=== PATIENT | male | born 1955 | race Caucasian/White ===

== ENCOUNTER 2017-03-28 18:56 | Emergency (ER) | payer MEDICAID ==
[~2017-03-28] VITALS: Ht 165.1 cm; Wt 78.0 kg
[~2017-03-28 18:56] MED LIST: ASPI-1169 PO; ATOR40TA PO; CAPT25TA3 PO; CARV25TA2 PO; FAMO-130 PO
[2017-03-28 19:00] VITALS: BP 142/85
[2017-03-28] MEDS ORDERED: OSELTAMIVIR PHOSPHATE 75 MG CAPSULE PO ONE (19:30)
[2017-03-28] MEDS ORDERED: IBUPROFEN 600 MG TABLET PO ONE (19:30)
[2017-03-28] MEDS ORDERED: ACETAMINOPHEN ES 500 MG TABLET PO ONE (19:30)
--- NOTE | 2017-03-28 19:41 | NUR ---
PT LEFT WITHOUT SIGNING DISCHARGE INSTRUCTIONS. PT WAS SEEN AND TREATED BY MOY VICKERS.
== END 2017-03-28 20:08 | disposition home or self-care (01) ==
LOC: ER 18:57
DX: R50.9 Fever, unspecified (principal); J02.9 Acute pharyngitis, unspecified; R51 Headache; R11.0 Nausea; I10 Essential (primary) hypertension; Z95.1 Presence of aortocoronary bypass graft; Z79.82 Long term (current) use of aspirin
CPT/HCPCS: 99281; A4606; Z7610; Z7502

== ENCOUNTER 2019-02-05 15:14 | Inpatient (IN) | payer MEDICARE, MEDICAID ==
[~2019-02-05] VITALS: Ht 167.6 cm; Wt 81.2 kg
--- NOTE | 2019-02-05 15:17 | NUR ---
[id number] FROM HOME FOR CHEST PAIN, TAKEN 2 NITRO SHERIFF'S DETECTIVE, C/O LOW BP AFTER GIVEN [id number] BY RA; DENIES ANY CHEST PAIN NOW. PATIENT A/OX4, BREATHING EVEN AND UNLABORED, NO SOB NOTED, CHANGED INTO GOWN, ATTACHED TO THE WEED BURNER. KEPT COMFORTABLE. NEEDS ATTENDED.
--- NOTE | 2019-02-05 15:20 | NUR ---
DR. TY AT BEDSIDE FOR EVAL.
[2019-02-05 15:40] LABS: BASOPHILS % (AUTO) 0.3 % (0.0-2.0); EOSINOPHILS % (AUTO) 0.8 % (0.0-6.0); HEMATOCRIT 39 % (39-51); HEMOGLOBIN 13.1 g/dL (13.5-17.5); LYMPHOCYTES # (AUTO) 1.3 /CMM (0.8-4.8); LYMPHOCYTES % (AUTO) 17.8 % (20.0-44.0); MEAN CORPUSCULAR HGB CONC 33 g/dl (31.0-36.0); MEAN CORPUSCULAR VOLUME 88 fL (80-96); MONOCYTES # (AUTO) 0.3 /CMM (0.1-1.30); MONOCYTES % (AUTO) 4.4 % (2.0-12.0); NEUTROPHILS # (AUTO) 5.8 /CMM (1.8-8.9); NEUTROPHILS % (AUTO) 76.7 % (43.0-81.0); PLATELET COUNT (AUTO) 226 /CMM (150-450); RED BLOOD CELL COUNT(AUTO) 4.49 MIL/uL (4.5-6.0); WHITE BLOOD COUNT (AUTO) 7.5 K/uL (4.3-11.0)
[2019-02-05 15:49] LABS: CALCIUM, SERUM 8.2 mg/dL (8.5-10.1); CARBON DIOXIDE 28 mmol/L (21-32); CHLORIDE 103 mmol/L (98-107); CREATININE 0.9 mg/dL (0.6-1.3); GLUCOSE 133 mg/dL (74-106); POTASSIUM 4.2 mmol/L (3.5-5.1); SODIUM SERUM 136 mmol/L (136-145); UREA NITROGEN, BLOOD 16 mg/dL (7-18)
--- NOTE | 2019-02-05 16:11 | NUR ---
JUAN SKAGGS [phone]
--- NOTE | 2019-02-05 16:13 | NUR ---
Nirav Richards [phone] CALLED
[2019-02-05] MEDS ORDERED: CARV6.252 PO (16:15)
[2019-02-05] MEDS ORDERED: CLON1PAT13 TD (16:15)
[2019-02-05] MEDS ORDERED: OMEG-72 PO (16:15)
[2019-02-05] MEDS ORDERED: COLC0.6T67 PO (16:15)
[2019-02-05] MEDS ORDERED: NITR0.4T48 PO (16:15)
[2019-02-05] MEDS ORDERED: ASPI-1152 PO (16:15)
--- NOTE | 2019-02-05 16:19 | NUR ---
CALLED FOR TELE
--- NOTE | 2019-02-05 17:23 | NUR ---
REPORT GIVEN TO SUMEET SWEET. AWAITING TRANSFER TO FLOOR.
--- NOTE | 2019-02-05 18:00 | NUR ---
PATIENT TRANSFERRED TO ROOM 304-1 VIA ACLS PROTOCOL. ENDORSED TO SUMEET SWEET FOR CRISTOBAL.
[2019-02-05 18:01] VITALS: BP 145/87
--- NOTE | 2019-02-05 18:10 | NUR ---
OVERLAY PLASTICIAN NOTES PATIENT ADMITTED TO UNIT, REPORT RECEIVED FROM CHANTAL SWEET. PATIENT AWAKE, ALERT AND ORIENTED X 4. NO ACUTE DISTRESS. DENIES ANY PAIN OR DISCOMFORT AT THIS TIME. PATIENT UNDER MEDICATION SUPERVISION OF DR SKAGGS, AWARE OF PATIENT ARRIVAL. PATIENT PLACED ON DIRECTOR OF CLINICAL EDUCATION, SR 61. JIM AT BEDSIDE. PATIENT AND ORIENTED TO UNIT, STAFF, PLAN OF CARE AND VERBALIZED UNDERSTANDING. ADMITTING ORDERS RECEIVED FROM DR SKAGGS. WILL CONTINUE TO MONITOR. BED LOCKED AND IN LOW POSITION. BILATERAL UPPER SIDE RAILS UP AND LOCKED. CALL LIGHT WITHIN EASY REACH
--- NOTE | 2019-02-05 18:13 | NUR ---
GYRO MECHANIC NOTES VERIFIED ORDER WITH DR SKAGGS FOR MORPHINE SULFATE. PER DR SKAGGS, MORPHINE SULFATE 1MG IV EVERY 1 HOUR, UP TO 3 DOSES FOR SEVERE PAIN. ORDER NOTED AND CARRIED OUT. WILL CONTINUE TO MONITOR
--- NOTE | 2019-02-05 18:20 | NUR ---
IRONWORKER FOREMAN NOTES SPOKE WITH PATIENT AND JIM AT BEDSIDE. BOTH VERBALIZED THAT PATIENT JUST HAD HIS STRESS TEST YESTER WITH DR REED AND RESULTS ARE STILL PENDING. MD AWARE. WILL CONTINUE TO MONITOR
[2019-02-05] MEDS ORDERED: COLCHICINE 0.6 MG TABLET PO PRN (18:30)
[2019-02-05] MEDS ORDERED: MORPHINE SULFATE INJ 2 MG/ML DISP.SYRIN IV PRN (18:30)
[2019-02-05] MEDS ORDERED: ZOLPIDEM TARTRATE 10 MG TABLET PO PRN (18:30)
[2019-02-05] MEDS ORDERED: LORAZEPAM 0.5 MG TABLET PO PRN (18:30)
[2019-02-05] MEDS ORDERED: ACETAMINOPHEN ES 500 MG TABLET PO PRN (18:30)
[2019-02-05] MEDS ORDERED: NITROGLYCERIN 0.4 MG/TAB BOTTLE SL PRN (18:30)
--- NOTE | 2019-02-05 18:32 | NUR ---
OIL FIELD ROUSTABOUT NOTES PATIENT AND JIM PROVIDED NUMBER FOR DR REED'S OFFICE ([phone])
--- NOTE | 2019-02-05 18:34 | NUR ---
RESEARCHER NOTES PATIENT RESTING INSIDE ROOM. AWAKE, ALERT AND ORIENTED X 4. NO ACUTE DISTRESS. DENIES ANY PAIN OR DISCOMFORT. PATIENT KEPT CLEAN, DRY AND COMFORTABLE. PROVIDED WITH CALM SAFE, HAZARD-FREE ENVIRONMENT. WILL ENDORSE TO INCOMING SHIFT FOR CRISTOBAL. BED LOCKED AND IN LOW POSITION. BILATERAL UPPER SIDE RAILS UP AND LOCKED. CALL LIGHT WITHIN EASY REACH
[2019-02-05 19:57] VITALS: BP 141/82
[2019-02-05] MEDS ORDERED: ENOXAPARIN SODIUM 60 MG/0.6 ML DISP.SYRIN SQ SCH (20:00)
[2019-02-05 20:09] LABS: THYROID STIMULATING HORMONE 1.153 uIU/mL (0.358-3.74)
[2019-02-05 20:10] LABS: MAGNESIUM 1.8 mg/dL (1.8-2.4)
[2019-02-05] MEDS: ATORVASTATIN 40 MG TABLET PO SCH (21:07)
[2019-02-05] MEDS: CARVEDILOL 6.25 MG TABLET PO SCH (21:07)
[2019-02-06] VITALS (57 sets, daily range): BP systolic 59–154; BP diastolic 27–94
--- NOTE | 2019-02-06 00:40 | NUR ---
GAS FITTER APPRENTICE NOTES TROP 1.[address] SKAGGS. MADE AWARE RE PT'S LAB RESULTS. WITH NEW ORDERS TO CALL DR. MENDEZ. WILL CONTINUE TO MONITOR.
--- NOTE | 2019-02-06 00:44 | NUR ---
MANAGER APPOINTMENT NOTES DR. MENDEZ CALLED. NOTIFIED HIM RE PT'S TROP. WITH NEW ORDERS TO DO STAT PTT & INR. IF NORMAL, START HEPARIN DRIP PER [facility] PROTOCOL. KEEP PT NPO X MEDS. ORDERS NOTED AND CARRIED OUT. WILL CONTINUE TO MONITOR.
[2019-02-06] MEDS ORDERED: HEPARIN INFUSION/D5W 500 ML IV PRN (01:00)
--- NOTE | 2019-02-06 01:19 | NUR ---
SHIELD RUNNER NOTES PHARMACIST CALLED. UNABLE TO ORDER HEPARIN AND LOVENOX AT THE SAME TIME PER PROTOCOL. NOTIFIED DR MENDEZ. WITH NEW ORDERS TO D/C LOVENOX AND START HEPARIN DRIP PER [facility] PROTOCOL. WILL CONTINUE TO MONITOR.
[2019-02-06] MEDS ORDERED: HEPARIN INFUSION/D5W 500 ML IV ONE (01:50)
[2019-02-06] MEDS ORDERED: HEPARIN SODIUM, PORCINE 5000 UNITS/1 ML VIAL IV ONE (02:00)
--- NOTE | 2019-02-06 06:17 | NUR ---
WAREHOUSE CONSULTANT NOTES AWAKE & RESPONSIVE. NOT IN ANY DISTRESS. NO SOB NOTED. DENIES ANY CP OR ANY DISCOMFORT AT THIS TIME. ON TELE SB @ 57 WITH HEPARIN DRIP INFUSING WELL. MONITORED ACCORDINGLY. CALL LIGHT WITHIN REACH. BED IN LOWEST POSITION. SR UP X 2 FOR SAFETY. WILL ENDORSE TO NEXT SHIFT.
[2019-02-06 06:21] LABS: BASOPHILS % (AUTO) 0.2 % (0.0-2.0); EOSINOPHILS % (AUTO) 1.4 % (0.0-6.0); HEMATOCRIT 40 % (39-51); HEMOGLOBIN 13.7 g/dL (13.5-17.5); LYMPHOCYTES # (AUTO) 2.6 /CMM (0.8-4.8); LYMPHOCYTES % (AUTO) 28.8 % (20.0-44.0); MEAN CORPUSCULAR HGB CONC 35 g/dl (31.0-36.0); MEAN CORPUSCULAR VOLUME 86 fL (80-96); MONOCYTES # (AUTO) 0.5 /CMM (0.1-1.30); MONOCYTES % (AUTO) 5.6 % (2.0-12.0); NEUTROPHILS # (AUTO) 5.9 /CMM (1.8-8.9); PLATELET COUNT (AUTO) 215 /CMM (150-450); RED BLOOD CELL COUNT(AUTO) 4.58 MIL/uL (4.5-6.0); WHITE BLOOD COUNT (AUTO) 9.2 K/uL (4.3-11.0)
--- NOTE | 2019-02-06 06:52 | NUR ---
PLASTERER SPRAY GUN NOTES TROP 8.148. DR MENDEZ NOTIFIED AT BEDSIDE. HEPARIN DRIP INFUSING WELL. WILL CONTINUE TO MONITOR.
[2019-02-06 06:54] LABS: ALBUMIN 3.6 g/dL (3.4-5.0); BILIRUBIN,TOTAL 0.4 mg/dL (0.2-1.0); CALCIUM, SERUM 8.7 mg/dL (8.5-10.1); CREATININE 0.9 mg/dL (0.6-1.3); POTASSIUM 4.3 mmol/L (3.5-5.1); TOTAL PROTEIN, SERUM 6.6 g/dL (6.4-8.2)
--- NOTE | 2019-02-06 07:10 | NUR ---
MS RN NOTES PATIENT IN BED ALERT ORIENTED X 3. NO ACUTE DISTRESS NOTED. BREATHING UNLABORED. DENIED CHEST PAIN. IV ACCESS PATENT AND INTACT, NO REDNESS OR SWELLING NOTED. SAFETY MEASURES IN PLACE. CALL LIGHT WITHIN REACH. WILL CONTINUE TO MONITOR ACCORDINGLY.
--- NOTE | 2019-02-06 07:35 | NUR ---
MANAGER ATHLETICS NOTES RECEIVED NEW ORDERS FROM AMIRA MCNAMARA TO CONTINUE NPO EXCEPT MEDS,CONSENT FOR LEFT HEART CATHETERIZATION AND/OR ANGIOPLASTY AND/OR, ANGIOPLASTY AND/OR STENT PLACEMENT AND/OR AORTAGRAM AND/OR LEFT, VENTRICULAR ANGIOGRAM AND CONTRAST SEDATION AND TO STOP HEPARIN AT 0900 TODAY 02/06/2019. NOTED AND CARRIED OUT
--- NOTE | 2019-02-06 08:00 | NUR ---
SAP PI DEVELOPER NOTES CLARIFIED WITH DR MENDEZ REGARDING ASPIRIN AND AM MEDS IF OK TO GIVE SAID OK, AND ALSO CLARIFIED REGARDING NEXT TROPONIN LEVEL BLOOD DRAW, SAID NO AT THIS TIME.
[2019-02-06] MEDS: PANTOPRAZOLE 40 MG TABLET.DR PO SCH (08:07)
[2019-02-06] MEDS: ASPIRIN EC 81 MG TABLET.DR PO SCH (08:16)
[2019-02-06] MEDS: CARVEDILOL 6.25 MG TABLET PO SCH ×2 (08:16→18:29)
[2019-02-06] MEDS: CLONIDINE HCL 0.2MG/24H PTWK 1 EA PATCH TD SCH ×2 (08:17→08:44)
[2019-02-06] MEDS: LISINOPRIL (5MG) 5 MG TABLET PO SCH ×2 (08:17→17:00)
--- NOTE | 2019-02-06 08:30 | NUR ---
SCHOOL ADMINISTRATOR NOTES PATIENT SEEN AND EVALUATED BY ANIKA STEVENSON, FAMILY AT BEDSIDE.
--- NOTE | 2019-02-06 09:00 | NUR ---
COLUMNIST NOTES PATIENT SEEN AND EVALUATED BY DR WRAY. HEPARIN DRIP STOPPED AT THIS TIME.
[2019-02-06] MEDS ORDERED: IV NS 0.9% 1,000 ML ONE (09:44)
[2019-02-06] MEDS ORDERED: IODIXANOL 150 ML IV ONE ×2 (09:44→11:19)
[2019-02-06] MEDS ORDERED: IV SET PRIMARY PUMP SET 1 EA INFUS.SET MC ONE (09:44)
[2019-02-06] MEDS ORDERED: IV NS 0.9% 50 ML IV ONE (09:59)
--- NOTE | 2019-02-06 10:22 | NUR ---
POLITICAL ORGANIZER NOTES PATIENT TRANSPORTED TO OPERATING ROOM IN STABLE CONDITION. FAMILY AT BEDSIDE.
[2019-02-06] MEDS ORDERED: MIDAZOLAM HCL 2 MG/2ML VIAL ONE ×2 (10:35→10:45)
[2019-02-06] MEDS ORDERED: FENTANYL PF 100MCG/2ML AMPUL ONE ×2 (10:35→10:45)
[2019-02-06] MEDS ORDERED: LIDOCAINE HCL/PF 1% 30 ML SDV ONE (10:50)
[2019-02-06] MEDS ORDERED: NITROGLYCERIN ICAR 1,000 MCG/10 ML VIAL ICAR ONE (11:33)
[2019-02-06] MEDS ORDERED: IODIXANOL 320MG/ML 50 ML IV ONE (11:35)
[2019-02-06] MEDS ORDERED: VERAPAMIL HCL IV 5 MG/2 ML VIAL ONE ×2 (11:35→11:52)
[2019-02-06] MEDS ORDERED: ASPIRIN 325 MG TABLET ONE (11:36)
[2019-02-06] MEDS ORDERED: TICAGRELOR 90 MG TABLET PO ONE (11:36)
--- NOTE | 2019-02-06 12:15 | NUR ---
Bottle of Brilinta handed to pt's at bedside.
--- NOTE | 2019-02-06 12:45 | NUR ---
EMPLOYMENT PROGRAM REPRESENTATIVE ADMITTING NOTES Rec'd pt from cardiac electrical laboratory technician. Pt s/p LHC w/ selective L&R coroangio by Dr. Richards. Pt A/O x 4, Welsh speaking. On R/A no SOB. SR/SB on telemonitor. IV line on RH G20 SL & L AC G18, both flushing well, no s/sx of infection/infiltration noted. Has R femoral sheath, no bleeding noted, w/ normal pedal pulses upon palpation. Skin is intact. Belongings at bedside. Pt oriented to room, at bedside. Safety precaution in place w/ bed in lowest & locked pos. Call light placed w/in reach. Will cont to monitor & attend pt needs. 1325 ECG done & reviewed by Dr. Richards. Per , may DC Heparin drip. Sheath can come out after 2 hrs. Hold good compression for at least 20 mins and check groin q30 mins first few hours.
[2019-02-06] MEDS ORDERED: IV NS 0.9% 1,000 ML BAG IV ONE (13:00)
[2019-02-06] MEDS: IV NS 0.9% 1,000 ML IV PRN ×4 (13:14→23:17)
--- NOTE | 2019-02-06 14:00 | NUR ---
Pt c/o mild substernal chest pain 06/08, non radiating. BP 133/84, HR 61, SR on telemonitor. Notified Dr. Richards.
--- NOTE | 2019-02-06 14:20 | NUR ---
Per Dr. Richards, cancel repeat troponin orders.
--- NOTE | 2019-02-06 15:03 | NUR ---
Pt seen & examined by Dr. Richards.
[2019-02-06] MEDS ORDERED: ISOSORBIDE MONONITRATE (30MG) 30 MG TAB.SR.24H PO SCH (15:30)
--- NOTE | 2019-02-06 16:00 | NUR ---
1600 R femoral sheath removed by KRISTIN Greenwood, good manual compression applied. Monitored closely for any sign of bleeding. 1608 Pt noted to be diaphoretic, pale looking, HR 46bpm, BP 59/39. Placed E-cart at bedside, hooked on defib pads. 1610 Spoke w/ Dr. Richards over the phone, made aware of the situation, ordered to give bolus of NS. MD to see pt. 1615 Dr. Richards at bedside, reassess pt condition, ordered to finish bolus of NS that is currently running then resume NS 150 cc/hr to complete 6 hrs. Continue monitor BP q5mins. Monitor for any sign of internal bleeding. Notify DEXTER.
[2019-02-06] MEDS: TICAGRELOR 90 MG TABLET PO SCH (17:30)
--- NOTE | 2019-02-06 18:24 | NUR ---
CARE INFORMATION ASSOCIATE CLOSING NOTES Pt resting comfortably on his bed, still has mild midsternal CP but tolerable. No SOB while on NC at 2lpm. SR/SB on telemonitor. IV line access (RH G20 & LAC G18) kept patent & intact, per Dr. Richards continue IVF NS x 150cc/hr overnight. R femoral, negative for any sign of bleeding w/ C/D/I dressing. Pt seen & examined by Dr. Richards. Per MD, continue bedrest for now, will re evaluate connor, pt & family notified. Safety precaution kept in place at all times w/ bed in lowest & locked pos. Call light placed w/in reach. Will endorse to PM RN for CRISTOBAL. Per Dr. Richards, if any changes, RN can contact Dr. Littlejohn. Addendum: 02/06/19 at 1829 by DARREN JOSE RN Addendum: Per Dr. Richards, hold BP meds for now.
[2019-02-06] MEDS ORDERED: IV NS 0.9% 1,000 ML BAG IV PRN (18:30)
--- NOTE | 2019-02-06 20:15 | NUR ---
curriculum development manager. initial assessment. RECEIVED THE PT REST ON THE BED. AWAKE, ALERT. FOLLOW COMMANDS, OXYGEN 2L VIA NASAL CANNULA. SAT 98%. RING PACKER SHOWING NSR. OXYGEN 2L VIA NASAL CANNULA. SAT 97%, NO ACUTE DISTRESS NOTED, CHEST PAIN 2/10 SCALE. IV RT HAND 20G. IVF NS 150ML/H. HOB ELEVATED, AFEBRILE, RT LEG PULSE PALPABLE, RT FEMORAL TINNY HEMATOMA NOTED, WILL CONTINUE TO MONITOR VITALS.
--- NOTE | 2019-02-06 20:23 | NUR ---
FUELER MD CARSON CALLED. GIVEN UP DATE,
[2019-02-06] MEDS: ATORVASTATIN 40 MG TABLET PO SCH (21:47)
[2019-02-07] VITALS (32 sets, daily range): BP systolic 69–123; BP diastolic 35–71
[2019-02-07] MEDS: IV NS 0.9% 1,000 ML IV PRN ×2 (03:30→06:09)
--- NOTE | 2019-02-07 05:28 | NUR ---
agricultural service worker. during shift pt denies chest pain. edi manager showing s angelina. blood pressure went down 88/50. couple of readings. ivf ns 150ml/h. will continue to monitor . Addendum: 02/07/19 at 0549 by MIKE ZHENG RN incomplete notes
[2019-02-07 06:09] LABS: BASOPHILS % (AUTO) 0.3 % (0.0-2.0); EOSINOPHILS % (AUTO) 0.6 % (0.0-6.0); HEMATOCRIT 36 % (39-51); HEMOGLOBIN 12.3 g/dL (13.5-17.5); LYMPHOCYTES # (AUTO) 1.6 /CMM (0.8-4.8); LYMPHOCYTES % (AUTO) 17.4 % (20.0-44.0); MEAN CORPUSCULAR HGB CONC 34 g/dl (31.0-36.0); MEAN CORPUSCULAR VOLUME 88 fL (80-96); MONOCYTES # (AUTO) 0.6 /CMM (0.1-1.30); MONOCYTES % (AUTO) 6.4 % (2.0-12.0); NEUTROPHILS # (AUTO) 7.1 /CMM (1.8-8.9); NEUTROPHILS % (AUTO) 75.3 % (43.0-81.0); PLATELET COUNT (AUTO) 190 /CMM (150-450); RED BLOOD CELL COUNT(AUTO) 4.15 MIL/uL (4.5-6.0); WHITE BLOOD COUNT (AUTO) 9.4 K/uL (4.3-11.0)
--- NOTE | 2019-02-07 06:28 | NUR ---
PROCESSING ASSISTANT. PT SLEPT WELL DURING SHIFT. PT DENIES CHEST PAIN. IVF NS 150ML/H. COUPLE OF LOW BLOOD PRESSURE NOTED. AND ALSO S KENNA. LOWEST WAS 45. NOT SUSTAIN
[2019-02-07 07:06] LABS: CALCIUM, SERUM 8.3 mg/dL (8.5-10.1); CREATININE 0.9 mg/dL (0.6-1.3); POTASSIUM 4.2 mmol/L (3.5-5.1)
--- NOTE | 2019-02-07 07:15 | NUR ---
BLUEPRINT ASSEMBLER INITIAL NOTES Rec'd pt on bed, A/O x 4, still has some mild chest discomfort but stated he is doing okay. No SOB while on R/A, sating 100%. SR on telemonitor. IV line access (RH G20 & L AC G18) patent & intact w/ NS x 150 cc/hr infusing well. No bleeding noted from R femoral sx site, only tiny hematoma. Good peripheral distal pulses. Skin remains intact. Safety precaution in place w/ bed in lowest & locked pos. Call light placed w/in reach. Will cont to monitor & attend pt needs.
[2019-02-07] MEDS: PANTOPRAZOLE 40 MG TABLET.DR PO SCH (07:28)
[2019-02-07] MEDS: CARVEDILOL 6.25 MG TABLET PO SCH (08:27)
[2019-02-07] MEDS: LISINOPRIL (5MG) 5 MG TABLET PO SCH (08:28)
[2019-02-07] MEDS: ASPIRIN EC 81 MG TABLET.DR PO SCH (08:30)
[2019-02-07] MEDS: TICAGRELOR 90 MG TABLET PO SCH (08:31)
--- NOTE | 2019-02-07 09:21 | NUR ---
Pt seen & examined by Dr. Keene.
--- NOTE | 2019-02-07 09:40 | NUR ---
Per Dr. Keene may start Miralax 17gm PO daily PRN & may give Docusate 200 mg PO x1.
--- NOTE | 2019-02-07 09:43 | NUR ---
Pt seen & examined by Dr. Littlejohn. Pt walked in the hallway, >200 ft w/ SBA. Denies any chest pain, discomfort & dizziness. BP 122/59, HR 59. Dr. Littlejohn updated.
--- NOTE | 2019-02-07 09:51 | NUR ---
Per Dr. Littlejohn, pt is cleared to go home. May resume his home medications.
[2019-02-07] MEDS ORDERED: POLYETHYLENE GLYCOL 3350 17 GM POWD.PACK PO PRN (10:00)
[2019-02-07] MEDS ORDERED: DOCUSATE SODIUM 100 MG CAPSULE PO ONE (10:00)
--- NOTE | 2019-02-07 10:54 | NUR ---
Called Dr. Keene, clarified if pt okay to go home. Per , pt may go home today, continue home medications as advised by site damage prevention technician. Addendum: 02/07/19 at 1245 by DARREN JOSE RN Addendum: Per Dr. Keene, may print medication reconciliation & resume pt home meds.
--- NOTE | 2019-02-07 12:20 | NUR ---
REPAIRER GENERALCRUTCHING CONTRACTOR NOTES: Pt DC'd to home as ordered. DC instruction & packet provided & explained thoroughly to the pt w/ & dtr at bedside, w/ verbalization of understanding. Pt remains A/O x 4, denies SOB & chest pain/discomfort. IV line access removed, pressure dressing applied, no bleeding noted. R femoral groin remains the same s/p sx, no bleeding from the site. Skin remains intact. Medications to take explained to the pt - its use, frequency & side effects w/ verbalization of understanding. Per , they already have the Brilinta at home. All belongings sent w/ pt, nothing missing. No concerns/issues identified during DC. Offered wheelchair but pt preferred to walk w/ family. Pt left the unit in stable condition.
== END 2019-02-07 12:30 | disposition home or self-care (01) | DRG 247 ==
LOC: ER 15:16 → TELE 17:25 → ICU 02-06 12:59
PROVIDERS: ADMIT Family Medicine; ATTEND Family Medicine
PROC: 4A023N7 Measurement of Cardiac Sampling and Pressure, Left Heart, Percutaneous Approach (ICD-10-PCS; principal; 2019-02-06)
PROC: 027035Z Dilation of Coronary Artery, One Artery with Two Drug-eluting Intraluminal Devices, Percutaneous Approach (ICD-10-PCS; 2019-02-06)
PROC: B211YZZ Fluoroscopy of Multiple Coronary Arteries using Other Contrast (ICD-10-PCS; 2019-02-06)
PROC: B21FYZZ Fluoroscopy of Other Bypass Graft using Other Contrast (ICD-10-PCS; 2019-02-06)
DX: I21.4 Non-ST elevation (NSTEMI) myocardial infarction (principal); I25.10 Atherosclerotic heart disease of native coronary artery without angina pectoris; I10 Essential (primary) hypertension; Z95.1 Presence of aortocoronary bypass graft; E78.5 Hyperlipidemia, unspecified; E66.9 Obesity, unspecified; F03.90 Unspecified dementia, unspecified severity, without behavioral disturbance, psychotic disturbance, mood disturbance, and anxiety; M19.90 Unspecified osteoarthritis, unspecified site; Z86.73 Personal history of transient ischemic attack (TIA), and cerebral infarction without residual deficits; G44.209 Tension-type headache, unspecified, not intractable; F43.10 Post-traumatic stress disorder, unspecified; Z95.5 Presence of coronary angioplasty implant and graft; N40.0 Benign prostatic hyperplasia without lower urinary tract symptoms; M81.0 Age-related osteoporosis without current pathological fracture; J44.9 Chronic obstructive pulmonary disease, unspecified; K21.9 Gastro-esophageal reflux disease without esophagitis; F41.9 Anxiety disorder, unspecified; Z87.442 Personal history of urinary calculi; I25.2 Old myocardial infarction
CPT/HCPCS: 36415; 71045-TC; 80048-TC; 80053-TC; 80061-TC; 83735-TC; 84443-TC; 84484-TC; 85025-TC; 85610-TC; 85730-TC; 87081-TC; 92980; 92981; 92982; 93307-TC; 93452; A4216; A6403; C1725; C1887; C1894; G0378; J1644; J2250; J3010; J3490; J7030; J7050; Q9967

== ENCOUNTER 2020-12-26 04:41 | Inpatient (IN) | payer MEDICARE, OTHER ==
[~2020-12-26] VITALS: Ht 167.6 cm; Wt 88.5 kg
[~2020-12-26 04:41] MED LIST changes: -ASPI-1169 PO; +ASPI-1420 PO; -CARV25TA2 PO; +CARV6.252 PO; +CLON1PAT13 TD; +COLC0.6T67 PO; -FAMO-130 PO; +NITR0.4T48 PO; +OMEG-72 PO
--- NOTE | 2020-12-26 04:45 | NUR ---
Note tommieone in EDM - 12/26/20 at 0634 by DEEPAK BIBRA C/O CHEST PRESSURE, FROM HOME. PATIENT STABLE ON RA. PT IS A/OX 4, RR EVEN AND UNLABORED, NO SOB NOTED. PT CONNECTED TO MONITORS.
--- NOTE | 2020-12-26 04:50 | NUR ---
PT BIB EMS TO ER, C/O CHEST PAIN AND HEADACHE WELL HIGH BP. PT STATES BP WAS 180/105. PT IS A/OX4. PT ON ROOM AIR UPON ARRIVAL, BUT PER , PUT PT ON 2L OF 02 VIA NC. PT IS ON NUT CHOPPER. OXYGEN SATURATION >98%. ALL SAFETY MEASURES IMPLEMENTED. WILL CONTINUE TO MONITOR AND ASSESS FOR ANY CHANGES.
[2020-12-26 05:32] LABS: BASOPHILS % (AUTO) 0.3 % (0.0-2.0); EOSINOPHILS % (AUTO) 0.9 % (0.0-6.0); HEMATOCRIT 43 % (39-51); HEMOGLOBIN 14.3 g/dL (13.5-17.5); LYMPHOCYTES # (AUTO) 1.9 K/uL (0.8-4.8); LYMPHOCYTES % (AUTO) 23.1 % (20.0-44.0); MEAN CORPUSCULAR HGB CONC 33 g/dl (31.0-36.0); MEAN CORPUSCULAR VOLUME 87 fL (80-96); MONOCYTES # (AUTO) 0.4 K/uL (0.1-1.30); MONOCYTES % (AUTO) 5.3 % (2.0-12.0); NEUTROPHILS # (AUTO) 5.7 K/uL (1.8-8.9); NEUTROPHILS % (AUTO) 70.4 % (43.0-81.0); PLATELET COUNT (AUTO) 250 K/uL (150-450); RED BLOOD CELL COUNT(AUTO) 4.96 MIL/uL (4.5-6.0); WHITE BLOOD COUNT (AUTO) 8.1 K/uL (4.3-11.0)
[2020-12-26 05:33] LABS: CALCIUM, SERUM 8.3 mg/dL (8.5-10.1); CARBON DIOXIDE 29 mmol/L (21-32); CHLORIDE 104 mmol/L (98-107); GLUCOSE 123 mg/dL (74-106); POTASSIUM 4.9 mmol/L (3.5-5.1); SODIUM SERUM 142 mmol/L (136-145); UREA NITROGEN, BLOOD 15 mg/dL (7-18)
[2020-12-26] MEDS ORDERED: ONDANSETRON HCL/PF 4 MG/2 ML VIAL ONE (05:58)
[2020-12-26] MEDS ORDERED: MORPHINE SULFATE INJ 4 MG/ML DISP.SYRIN ONE (05:58)
[2020-12-26] MEDS ORDERED: ZOLPIDEM TARTRATE 5 MG TABLET PO PRN (06:00)
[2020-12-26] MEDS ORDERED: LABETALOL 20 MG/4 ML VIAL IV ONE (06:00)
[2020-12-26] MEDS ORDERED: MORPHINE SULFATE INJ 2 MG/ML DISP.SYRIN IV ONE (06:00)
[2020-12-26] MEDS ORDERED: Z GUARD REMEDY 2 OZ OINT TP PRN (06:00)
[2020-12-26] MEDS ORDERED: MAGNESIUM HYDROXIDE 30 ML UDC PO PRN (06:00)
[2020-12-26] MEDS ORDERED: ONDANSETRON HCL/PF 4 MG/2 ML VIAL IVP PRN (06:00)
[2020-12-26] MEDS ORDERED: ACETAMINOPHEN 325 MG TABLET PO PRN (06:00)
[2020-12-26] MEDS ORDERED: MORPHINE SULFATE INJ 2 MG/ML DISP.SYRIN IV PRN (06:00)
[2020-12-26] MEDS ORDERED: ONDANSETRON HCL/PF 4 MG/2 ML VIAL IVP ONE (06:00)
[2020-12-26] MEDS ORDERED: MAG HYDROX/AL HYDROX/SIMETH 30 ML UDC PO PRN (06:00)
[2020-12-26] MEDS ORDERED: LABETALOL HCL IV 100MG VIAL ONE (06:04)
--- NOTE | 2020-12-26 06:20 | NUR ---
COVID SWAB COLLECTED AND SENT TO LAB
[2020-12-26] MEDS ORDERED: NITROGLYCERIN 0.4 MG/TAB BOTTLE SL PRN (06:30)
[2020-12-26] MEDS ORDERED: COLCHICINE 0.6 MG TABLET PO PRN (06:30)
--- NOTE | 2020-12-26 07:56 | NUR ---
room 325-1
--- NOTE | 2020-12-26 08:01 | NUR ---
REPORT GIVEN TO HENRY SWEET FOR CRISTOBAL
[2020-12-26 08:20] VITALS: BP 118/111
--- NOTE | 2020-12-26 08:20 | NUR ---
PHOTO STUDIO ASSISTANTPOWER SAW MECHANIC NOTE RECEIVED PATIENT FROM ER. STABLE, A/O X4. PATIENT CAME INTO ER C/O CHEST PAIN, HEADACHE AND HIGH BLOOD PRESSURE. STABLE ON ROOM AIR - NO SOB NOTED. NO DISTRESS/DISCOMFORT NOTED. PATIENT STATES NO CHEST PAIN AT THIS TIME, ONLY HEADACHE. VITALS: 118/11 HR 73 TEMP 98.2 OXYGEN 100%. ON EXTERNAL TELE MONITOR - SINUS RHYTHM IN THE 70s. PATIENT IS AMBULATORY WITH STEADY GAIT. SKIN INTACT. SAFETY MEASURES IMPLEMENTED. CALL LIGHT WITHIN REACH. WILL CONTINUE TO MONITOR.
[2020-12-26] MEDS ORDERED: ASPIRIN 81 MG TAB.CHEW PO SCH (09:00)
[2020-12-26] MEDS ORDERED: ASPIRIN EC 81 MG TABLET.DR PO SCH (09:00)
[2020-12-26] MEDS ORDERED: CARVEDILOL 6.25 MG TABLET PO SCH (09:00)
[2020-12-26] MEDS ORDERED: LISINOPRIL (5MG) 5 MG TABLET PO SCH (09:00)
[2020-12-26] MEDS ORDERED: IOHEXOL-350 100 ML VIAL IV ONE (10:42)
[2020-12-26] MEDS ORDERED: CT SWABBABLE VALVE TRANS SET 1 EA INFUS.SET MC ONE (10:42)
[2020-12-26] MEDS ORDERED: IV NS 0.9% 250 ML IV ONE (10:42)
[2020-12-26] MEDS ORDERED: METOPROLOL TARTRATE INJ 5 MG/5 ML AMPUL ONE ×3 (10:49→11:09)
[2020-12-26] MEDS ORDERED: NITROGLYCERIN 0.4 MG/TAB BOTTLE ONE (10:49)
[2020-12-26] MEDS: METOPROLOL TARTRATE INJ 5 MG/5 ML AMPUL IVP PRN ×3 (10:51→11:08)
[2020-12-26] MEDS ORDERED: NITROGLYCERIN 0.4 MG/TAB BOTTLE SL ONE (11:00)
--- NOTE | 2020-12-26 11:13 | NUR ---
RN NOTES: Post CTA: Patient able to tolerate procedure, no distress noted at this time.
[2020-12-26 12:00] VITALS: BP 124/69
--- NOTE | 2020-12-26 15:07 | NUR ---
MUSIC PROFESSIONALSORDER PICKER/ASSEMBLER NOTE PATIENT DISCHARGED @ 1502 VIA PRIVATE CAR. STABLE, A/O X4. NO SOB NOTED, NO CHEST PAIN AT THIS TIME. VITALS STABLE. ALL EXITCARE AND PATIENT EDUCATION GONE OVER WITH AND GIVEN TO PATIENT. DISCHARGE PAPERWORK INCLUDED. IV ACCESS REMOVED, WRISTBAND REMOVED. PATIENT ACCOMPANIED TO LOBBY BY MYSELF. MD AND CHARGE NURSE AWARE OF DC.
[2020-12-26] MEDS ORDERED: ATORVASTATIN 40 MG TABLET PO SCH (18:00)
== END 2020-12-26 15:00 | disposition home or self-care (01) | DRG 303 ==
LOC: ER 04:43 → TRANSITION 07:34 → TELE 07:57
DX: I25.10 Atherosclerotic heart disease of native coronary artery without angina pectoris (principal); I13.0 Hypertensive heart and chronic kidney disease with heart failure and stage 1 through stage 4 chronic kidney disease, or unspecified chronic kidney disease; Q61.3 Polycystic kidney, unspecified; I10 Essential (primary) hypertension; E78.5 Hyperlipidemia, unspecified; Z20.822 Contact with and (suspected) exposure to COVID-19; E78.1 Pure hyperglyceridemia; E11.9 Type 2 diabetes mellitus without complications; N40.0 Benign prostatic hyperplasia without lower urinary tract symptoms; F32.9 Major depressive disorder, single episode, unspecified; F03.90 Unspecified dementia, unspecified severity, without behavioral disturbance, psychotic disturbance, mood disturbance, and anxiety; N18.9 Chronic kidney disease, unspecified; E11.22 Type 2 diabetes mellitus with diabetic chronic kidney disease; M19.90 Unspecified osteoarthritis, unspecified site; E66.9 Obesity, unspecified; G44.209 Tension-type headache, unspecified, not intractable; J44.9 Chronic obstructive pulmonary disease, unspecified; M81.0 Age-related osteoporosis without current pathological fracture; N20.0 Calculus of kidney; F41.0 Panic disorder [episodic paroxysmal anxiety]; F43.10 Post-traumatic stress disorder, unspecified; I50.9 Heart failure, unspecified; Z82.49 Family history of ischemic heart disease and other diseases of the circulatory system; Z86.73 Personal history of transient ischemic attack (TIA), and cerebral infarction without residual deficits; Z95.1 Presence of aortocoronary bypass graft
CPT/HCPCS: 36415; 71045-TC; 75574; 80048-TC; 84484-TC; 85025-TC; 93307-TC; G0378; J2270; J2405; J3490; J7050; Q9967